=== PATIENT | female | born 1955 | race Caucasian/White ===

== ENCOUNTER 2023-06-15 12:01 | Emergency (ER) | payer MEDICARE, OTHER, SELFPAY ==
[2023-06-15 12:07] VITALS: BP 173/89; BMI 23.4
--- NOTE | 2023-06-15 12:22 | ED.GENMED ---
History of Present Illness
General
Chief Complaint: Heart Rate Problem
Source: patient
Exam Limitations: none
Time Seen by Provider: 06/15/23 12:05
Travel History
Have you had any contact with someone who has COVID-19?: No
Do you have any symptoms of coronavirus? Fever > 100 degrees, chills, cough, shortness of breath, sore throat, loss of taste or smell, muscle aches, or headache?: No
History of Present Illness
History of Present Illness:
68-year-old otherwise healthy female and on no medications presents via EMS after sudden onset of rapid heart rate this morning sitting at the table having her morning coffee. There is no diaphoresis or nausea. Heart rate was measured at 151
beats a minute on her Apple Watch. No recent travel or surgery. No leg swelling or calf pain. She does note she noticed a dull ache in the left side of her chest over the past several days. She has been doing her exercise class without any
difficulty. No other complaints at this time.
Past History
Past History
ED Past Medical History: None; Negative Asthma, HTN, Hypercholesterolemia or NIDDM
ED Past Surgical History: Gynecological (Hysterectomy)
Social History
Tobacco: Former smoker
Alcohol: Occasional
Personal:
Living: with family
Phy Exam
Physical Exam
Physical Exam:
Physical Exam
General: no apparent distress, not acutely ill
Neck: supple. no meningeal signs.
Heart: Tachycardic but regular
Lungs: no acute respiratory distress. clear bilaterally
Abdomen: normal bowel sounds. not tender. no CVAT
Neuro: alert and oriented. no focal neurological deficits
Skin: no rash
Psychiatric: well kept. interactive and cooperative
Extremities: no edema. no calf tenderness. good distal pulses
Course
Orders/Labs/Results
Orders:
Orders
06/15/23 12:05
EKG [Electrocardiogram (*1)] Urgent
Reason for Study: Palpitations
EKG- Treatment ONCE
06/15/23 12:19
Complete Blood Count/With Diff Urgent
Comprehensive Metabolic Panel Urgent
TSH Reflex To Free T4 Urgent
06/15/23 12:21
Troponin I Urgent
06/15/23 12:23
D-Dimer Urgent
06/15/23 12:47
CR Chest - 2 Views Urgent
Comment:
Reason For Exam: chest pain
Abnormal Lab Results
06/15/23
12:19
MCH 32.0 H pg
(27.0-31.0)
Absolute Neuts (auto) 6.6 H 10^3/uL
(1.4-6.5)
Absolute Lymphs (auto) 1.1 L 10^3/uL
(1.2-3.4)
Neutrophils % 80.0 H %
(42.2-75.2)
Lymphocytes % 13.1 L %
(20.5-51.1)
Chloride 108 H mmol/L
(98-107)
Carbon Dioxide 19 L mmol/L
(22-30)
Glucose 157 H mg/dl
(70-99)
06/15/23 12:19
06/15/23 12:19
Vital Signs
Initial and Last Documented VS:
Initial Vital Signs
Temp Pulse Resp BP Pulse Ox
97.7 F 120 18 173/89 98
06/15/23 12:07 06/15/23 12:07 06/15/23 12:07 06/15/23 12:07 06/15/23 12:07
Last Documented Vital Signs
Temp Pulse Resp BP Pulse Ox
97.7 F 87 18 146/70 91
06/15/23 12:07 06/15/23 13:30 06/15/23 13:30 06/15/23 13:00 06/15/23 13:30
MDM/Problems Addressed
Differential Diagnosis Includes:
Patient presents with rapid heart rate. No excessive alcohol use recently. EKG initially showed sinus tachycardia. She had sinus tachycardia on the monitor. No PE risk factors but will check D-dimer. Will check labs to consider electrolyte
abnormality or thyroid disorder. Troponin also pending secondary to comfort she described on the left side of her chest
*Critical Care Note
Total Time (30-74mins, 75-104mins- exclusive of procedures): Not Applicable
Update Note
Update Note:
Patient's heart rate has now normalized on its own. Workup shows normal D-dimer normal troponin negative chest x-ray patient admits to feeling better. This self resolved. No evidence of PE. No evidence of ACS. Recommend follow-up with family
doctor for palpitations. Stable for discharge
ED Attending Note
-
Portions of this chart may have been created with voice recognition software.� Occasional wrong word or��sound alike� substitutions may have occurred due to the inherent limitations of voice recognition software.
Discharge Plan
Departure
Patient Disposition: Home (Routine Discharge)
Date of Disposition: 06/15/23
Time of Disposition: 14:15
Patient with high blood pressure during this ER visit?: No
Discharge Problem:
Palpitations
Instructions: Palpitations (DC)
Prescriptions:
No Action
meclizine 25 MG tablet
25 mg PO Q8HPRN PRN (Reason: Dizziness) Qty: 12 0RF
Referrals:
Anish Michael DO [Family Provider] -
Activity Restrictions/Additional Instructions:
Stay hydrated. Return if worse otherwise follow-up with family doctor for further evaluation.
Interventions
Interventions:
*Risk Screen - Suicide Last Done: 06/15/23 12:07
*General Assessment Last Done: 06/15/23 12:07
*Neglect/Abuse Screening Last Done: 06/15/23 12:07
ED- Fall Risk Assessment Last Done: 06/15/23 12:33
*ED COVID-19 Vaccine History Last Done: 06/15/23 12:07
ED- Cardiac Assessment Last Done: 06/15/23 12:33
ED- Pulmonary Assessment Last Done: 06/15/23 12:33
[2023-06-15 12:30] LABS: % Basophils 0.6 % (0-2); % Eosinophils 0.7 % (0-6); % Immature Granulocytes 0.5 % (0-0.5); % Lymphocytes 13.1 % (20.5-51.1); % Monocytes 5.1 % (1.7-9.3); Absolute Basophils 0.1 10^3/uL (0-0.2); Absolute Eosinophils 0.1 10^3/uL (0-0.7); Absolute Lymphocytes 1.1 10^3/uL (1.2-3.4); Absolute Monocytes 0.4 10^3/uL (0.1-0.6); Absolute Neutrophils 6.6 10^3/uL (1.4-6.5); Hematocrit 39.8 % (37.0-47.0); Hemoglobin 13.9 g/dL (12.0-16.0); Mean Corp Hgb Conc. 34.9 g/dL (33.0-37.0); Mean Corpuscular Volume 91.7 fL (81.0-99.0); Mean Platelet Volume 9.5 fL (7.4-10.4); Nucleated Red Blood Cells % 0 %; Platelet Count 361 10^3/uL (130-400); Red Blood Cell Count 4.34 10^6/uL (4.20-5.40); White Blood Cell Count 8.3 10^3/uL (4.8-10.8)
[2023-06-15 12:41] LABS: ALT (SGPT) 25 U/L (0-35); AST (SGOT) 29 U/L (14-36); Albumin 4.9 g/dl (3.5-5.0); Alkaline Phosphatase 98 U/L (38-126); Blood Urea Nitrogen 12 mg/dl (7-17); Calcium 9.8 mg/dl (8.4-10.2); Carbon Dioxide 19 mmol/L (22-30); Chloride 108 mmol/L (98-107); Estimated Creatinine Clearance 72 ml/min; Glucose 157 mg/dl (70-99); Potassium 4.4 mmol/L (3.5-5.1); Sodium 138 mmol/L (135-145); Total Bilirubin 0.9 mg/dl (0.2-1.3); Total Protein 7.9 g/dl (6.3-8.2); eGFR > 60.00
[2023-06-15 12:45] LABS: D-Dimer < 0.27 ug/mlFEU (0.00-0.50)
[2023-06-15 12:54] LABS: Troponin I < 0.012 ng/ml
[2023-06-15 13:00] VITALS: BP 146/70
[2023-06-15 13:12] LABS: TSH Reflex To Free T4 1.01 uIU/ml (0.47-4.68)
== END 2023-06-15 14:43 | disposition home or self-care (01) ==
LOC: EMR 12:01
PROVIDERS: Physician Assistant; EMERGENCY PHYSICIAN Emergency Medicine; FAMILY PHYSICIAN Family Medicine
DX: R00.2 Palpitations (principal); Z87.891 Personal history of nicotine dependence
CPT/HCPCS: 99285; 71046; 80053; 84443; 84484; 85025; 85379; 93005

== ENCOUNTER 2023-09-21 07:03 | Emergency (ER) | payer MEDICARE, OTHER, SELFPAY ==
[2023-09-21 07:07] VITALS: BP 171/96
[2023-09-21 08:05] VITALS: BP 146/85
--- NOTE | 2023-09-21 08:32 | ED.GENMED ---
History of Present Illness
General
Chief Complaint: Breathing Problem
Source: patient
Exam Limitations: none
Time Seen by Provider: 09/21/23 08:15
Travel History
Have you had any contact with someone who has COVID-19?: No
Do you have any symptoms of coronavirus? Fever > 100 degrees, chills, cough, shortness of breath, sore throat, loss of taste or smell, muscle aches, or headache?: No
History of Present Illness
History of Present Illness:
68 year old female presents with dizziness and generalized sensation of unwell. She received COVID-vaccine yesterday. She rolled over in bed this morning and the room started spinning. She denies a headache. She denies chest pain or shortness of
breath. During his [place] like her heart was racing her heart has come down since then. No recent fever congestion runny nose. She denies any unilateral numbness or weakness. She denies any vision change. No neck pain. No other complaints at this
time
Past History
Past History
ED Past Medical History: None; Negative Asthma, HTN, Hypercholesterolemia or NIDDM
ED Past Surgical History: Gynecological (Hysterectomy)
Social History
Tobacco: Former smoker
Alcohol: Occasional
Personal:
Living: with family
Phy Exam
Physical Exam
Physical Exam:
General: Well-appearing female no acute respiratory distress
HEENT: Normocephalic atraumatic TMs normal subtle horizontal nystagmus noted mucosa moist neck is
Heart: Regular rate and rhythm
Lungs: Clear no wheeze
Neurologic exam: Alert and oriented finger-nose [id number] intact no drift on exam Sara-Hallpike maneuver positive for increased dizziness turning head to the right. This dizziness does fatigue.
Extremities: No cyanosis
Skin: warm, no rashes.
Scores
Heart Failure Risk
Heart Failure Risk Score: Not Applicable
Course
Orders/Labs/Results
Orders:
Orders
09/21/23 07:09
EKG [Electrocardiogram (*1)] Urgent
Reason for Study: Palpitations
09/21/23 07:10
EKG- Treatment ONCE
09/21/23 08:31
PT Consult [Pt Eval And Treat] Urgent
Treatment: vestibular eval
Activity Level: Ambulate
09/21/23 10:04
Meclizine [Antivert] 25 mg PO NOW STA
Vital Signs
Initial and Last Documented VS:
Initial Vital Signs
Temp Pulse Resp BP Pulse Ox
97.7 F 117 18 171/96 99
09/21/23 07:07 09/21/23 07:07 09/21/23 07:07 09/21/23 07:07 09/21/23 07:07
Last Documented Vital Signs
Temp Pulse Resp BP Pulse Ox
97.7 F 86 17 123/75 92
09/21/23 07:07 09/21/23 10:30 09/21/23 10:30 09/21/23 10:00 09/21/23 10:30
MDM/Problems Addressed
Differential Diagnosis Includes:
Dizziness. This is likely positional vertigo given exam. No neurologic deficit otherwise. Question if this is related to recent COVID booster. On monitor she has occasional PVCs however I do not think that this is causing her symptoms. Vital
signs otherwise stable. PT consult placed. Reviewed prior records. She was here for palpitations in May which have since resolved and she has since seen cardiology. Considered CT imaging however this would be unhelpful in this situation.
She has no other medical issues affecting today's care
*Critical Care Note
Total Time (30-74mins, 75-104mins- exclusive of procedures): Not Applicable
Update Note
Update Note:
Patient evaluated by physical therapy and they are in agreement with peripheral vertigo worse on the right. They did recommend outpatient therapy. Patient received meclizine here and will be discharged with oral meclizine and a prescription for
vestibular rehab
ED Attending Note
-
Portions of this chart may have been created with voice recognition software.� Occasional wrong word or��sound alike� substitutions may have occurred due to the inherent limitations of voice recognition software.
Discharge Plan
Departure
Patient Disposition: Home (Routine Discharge)
Date of Disposition: 09/21/23
Time of Disposition: 10:40
Patient with high blood pressure during this ER visit?: No
Discharge Problem:
Vertigo
Instructions: Vertigo ED
Prescriptions:
New
meclizine 25 mg tablet
25 mg PO BID PRN (Reason: dizziness) Qty: 10 0RF
No Action
meclizine 25 MG tablet
25 mg PO Q8HPRN PRN (Reason: Dizziness) Qty: 12 0RF
Referrals:
Heena White MD [Family Provider] -
Activity Restrictions/Additional Instructions:
Use meclizine as needed for dizziness. Follow-up with vestibular rehab. Return if needed otherwise
Interventions
Interventions:
*General Assessment Last Done: 09/21/23 08:43
*ED COVID-19 Vaccine History Last Done: 09/21/23 07:07
ED- Cardiac Assessment Last Done: 09/21/23 08:48
ED- Pulmonary Assessment Last Done: 09/21/23 08:43
Discharge Date and Time
Print Language: DANISH
[2023-09-21 09:00] VITALS: BP 152/75; PULSE 95; O2SAT 96
[2023-09-21 10:00] VITALS: BP 123/75
[2023-09-21] MEDS: ANTIVERT 25 MG PO (10:20)
[2023-09-21 10:36] VITALS: BP 121/70
== END 2023-09-21 11:10 | disposition home or self-care (01) ==
LOC: EMR 07:03
PROVIDERS: EMERGENCY PHYSICIAN Emergency Medicine; FAMILY PHYSICIAN Family Medicine
DX: H81.391 Other peripheral vertigo, right ear (principal); Z87.891 Personal history of nicotine dependence
CPT/HCPCS: 99283; 93005

== ENCOUNTER → 2023-09-26 14:18 | Outpatient (REF) | payer MEDICARE, OTHER, SELFPAY | LOC: RCS 14:18 | PROVIDERS: ATTENDING PHYSICIAN Internal Medicine Cardiovascular Disease; FAMILY PHYSICIAN Family Medicine | DX: R00.2 Palpitations (principal) | CPT/HCPCS: 93306 ==

== ENCOUNTER 2023-10-13 06:19 | Outpatient (RCR) | payer MEDICARE, OTHER, SELFPAY | END 2023-10-13 23:59 | disposition home or self-care (01) | LOC: RPT 06:19 | PROVIDERS: ATTENDING PHYSICIAN Family Medicine | DX: H81.10 Benign paroxysmal vertigo, unspecified ear (principal); Z73.6 Limitation of activities due to disability | CPT/HCPCS: 97161 ==

== ENCOUNTER → 2023-11-03 14:10 | Outpatient (REF) | payer MEDICARE, OTHER, SELFPAY | LOC: WDC 14:10 | PROVIDERS: ATTENDING PHYSICIAN Obstetrics & Gynecology; FAMILY PHYSICIAN Family Medicine | DX: Z12.31 Encounter for screening mammogram for malignant neoplasm of breast (principal) | CPT/HCPCS: 77063; 77067 ==

== ENCOUNTER → 2024-02-02 12:52 | Outpatient (REF) | payer MEDICARE, OTHER, SELFPAY | LOC: RAD 12:52 | PROVIDERS: ATTENDING PHYSICIAN Family Medicine | DX: E78.00 Pure hypercholesterolemia, unspecified (principal) | CPT/HCPCS: 75571 ==

== ENCOUNTER → 2024-05-25 08:53 | Outpatient (REF) | payer MEDICARE, OTHER, SELFPAY | LOC: HWRCS 08:53 | PROVIDERS: ATTENDING PHYSICIAN Family Medicine | DX: I31.39 Other pericardial effusion (noninflammatory) (principal) | CPT/HCPCS: 93306 ==

== ENCOUNTER → 2024-11-05 13:42 | Outpatient (REF) | payer MEDICARE, OTHER, SELFPAY | LOC: WDC 13:42 | PROVIDERS: ATTENDING PHYSICIAN Obstetrics & Gynecology; FAMILY PHYSICIAN Hospitalist | DX: Z12.31 Encounter for screening mammogram for malignant neoplasm of breast (principal) | CPT/HCPCS: 77063; 77067 ==